=== PATIENT | female | born 1970 | race Caucasian/White ===

== ENCOUNTER 2022-05-27 15:44 | Emergency (ER) | payer SELFPAY ==
[2022-05-27] MEDS: Acetaminophen 500 MG Tab PO ONE (17:07)
[2022-05-27] MEDS: Amoxicillin/Clavulanate K 875-125 MG Tab PO ONE (17:41)
[2022-05-27] MEDS: Sulfamethoxazole/Trimethoprim 800-160 MG Tab PO ONE (17:42)
[2022-05-27] MEDS: valACYclovir 1,000 MG Tab PO ONE (17:42)
== END 2022-05-27 17:30 | disposition home or self-care (01) ==
LOC: JP.ED 15:44
DX: L03.213 Periorbital cellulitis (principal); R21 Rash and other nonspecific skin eruption; Z79.899 Other long term (current) drug therapy
CPT/HCPCS: 99282; A9270

== ENCOUNTER 2023-07-10 12:05 | Emergency (ER) | payer SELFPAY | END 2023-07-10 13:41 | disposition home or self-care (01) | LOC: JP.ED 12:05 | DX: L02.212 Cutaneous abscess of back [any part, except buttock and flank] (principal); F17.210 Nicotine dependence, cigarettes, uncomplicated; Z86.16 Personal history of COVID-19 | CPT/HCPCS: 87070; 87186; 87205; 99283 ==